=== PATIENT | male | born 1940 | race Caucasian/White ===

== ENCOUNTER 2021-03-29 16:13 | Inpatient (IN) | payer MEDICARE, BC ==
[~2021-03-29] VITALS: Ht 167.6 cm; Wt 65.8 kg
--- NOTE | 2021-03-29 16:28 | NUR ---
DILLON RA88 from home with c/o chest pain. Per EMS pt's cp was 9/10 on scene, now 6/10 after NTG SL spray x 1 in route to ER, pt was also given ASA po in route to ER. EKG done on arrival and handed to . Pt placed on cont cardiac rehabilitation program director, pulse ox and B/P. No acute distress noted as pt is smiling and joking with ER staff. Pt states " I just want to get out of here ". Plan of care/ ER course discussed with pt, pt verbalized understanding.
[2021-03-29] MEDS ORDERED: ACETAMINOPHEN ES 500 MG TABLET PO ONE (16:45)
[2021-03-29] MEDS ORDERED: NITROGLYCERIN 0.4 MG/TAB BOTTLE SL ONE ×2 (16:45→16:59)
[2021-03-29] MEDS ORDERED: ONDANSETRON ODT 4 MG TAB.RAPDIS SL ONE (16:45)
[2021-03-29] MEDS ORDERED: RAMI5CAP30 PO (16:47)
[2021-03-29] MEDS ORDERED: ASPI81TA31 PO (16:47)
[2021-03-29] MEDS ORDERED: ACETAMINOPHEN ES 500 MG TABLET ONE (16:59)
[2021-03-29] MEDS ORDERED: ONDANSETRON ODT 4 MG TAB.RAPDIS ONE (16:59)
[2021-03-29 17:13] LABS: MEAN CORPUSCULAR HEMOGLOBIN 31.4 uug (23.8-33.4); MEAN CORPUSCULAR VOLUME 96.1 fL (73.0-96.2); PLATELET COUNT (AUTO) 203 K/uL (152-348)
[2021-03-29 17:18] LABS: CREATININE 0.8 mg/dL (0.6-1.3)
[2021-03-29 17:33] LABS: BILIRUBIN,DIRECT 0.1 mg/dL (0.0-0.2); BILIRUBIN,TOTAL 0.4 mg/dL (0.2-1.0); TOTAL PROTEIN, SERUM 6.6 g/dL (6.4-8.2)
--- NOTE | 2021-03-29 18:00 | NUR ---
Pt resting in [facility] with NAD noted. Per pt to be admitted to tele, [employer] paged.
--- NOTE | 2021-03-29 18:30 | NUR ---
spoke with Khang Moon DNP via telephone and pt has been accepted for tele admission. spoke with the pt and pt's son (via telephone) about plan of care. Pt resting with NAD noted.
--- NOTE | 2021-03-29 19:10 | NUR ---
Hand off report given to HEAVENLY Escobedo.
--- NOTE | 2021-03-29 21:48 | NUR ---
Pt. admitted to tele , under care of Jerman Moon DNP Belongs List completed. Report given to HEAVENLY Chapin
--- NOTE | 2021-03-29 22:10 | NUR ---
Admitted patient to Tele unit from Er via [place] accompanied by Er nurse.Patient awake alert x 4 .Denies chest pain at this time. On Ra.No s/s of distress noted. Iv on rt hand 20 patent and intact .Started IVF tolerated well .Due meds given as ordered. No a/r noted.Patient NSR on tele.Safety measures in place. Call with in reach.Will continue to monitor.
[2021-03-29] MEDS ORDERED: IV NS 1000 ML 1,000 ML IV PRN (22:15)
[2021-03-29] MEDS ORDERED: MAGNESIUM HYDROXIDE 30 ML LIQUID UDC PO PRN (22:15)
[2021-03-29] MEDS ORDERED: Z GUARD REMEDY PASTE 57 GM TUBE TOP PRN (22:15)
[2021-03-29] MEDS ORDERED: MORPHINE SULFATE 2 MG/1 ML DISP.SYRIN IV PRN (22:15)
[2021-03-29] MEDS ORDERED: ONDANSETRON 4 MG/2 ML VIAL IV PRN (22:15)
[2021-03-29] MEDS ORDERED: ACETAMINOPHEN 325 MG TABLET PO PRN (22:15)
[2021-03-29] MEDS ORDERED: ENOXAPARIN SODIUM 40 MG/0.4 ML DISP.SYRIN SQ SCH (22:15)
[2021-03-29] MEDS ORDERED: ATORVASTATIN 40 MG TABLET PO SCH (22:15)
[2021-03-29 22:40] VITALS: BP 169/75
--- NOTE | 2021-03-29 22:59 | NUR ---
Received Troponin result of 2.676.Patient denies chest pain at this.Notified Khang Murphy with new order received noted and carried noted. Started another Iv line on left FA 22 g with good blood return.Heparin drip started at 1000u/hr.Patient tolerated well. PEr Colin Moon he contacted bar tender /Frank for consult.Will continue to monitor .Call light with in reach.
[2021-03-29] MEDS ORDERED: HEPARIN/D5W DRIP 500 ML IV PRN (23:45)
[2021-03-30] MEDS: NITROGLYCERIN OINT 1 GM PACKET TP SCH ×2 (00:24→05:51)
[2021-03-30] MEDS ORDERED: HEPARIN/D5W DRIP 500 ML ONE (00:25)
[2021-03-30 00:30] VITALS: BP 157/65
[2021-03-30 04:46] VITALS: BP 137/69
[2021-03-30 06:11] LABS: HEMATOCRIT 36.6 % (36.7-47.1); PLATELET COUNT (AUTO) 181 K/uL (152-348)
[2021-03-30 06:29] LABS: THYROID STIMULATING HORMONE 2.125 mIU/mL (0.358-3.740)
[2021-03-30 06:31] LABS: BILIRUBIN,TOTAL 0.3 mg/dL (0.2-1.0); CREATININE 0.9 mg/dL (0.6-1.3); MAGNESIUM 2.1 mg/dL (1.8-2.4); PHOSPHOROUS 3.5 mg/dL (2.5-4.9); POTASSIUM 4.1 mmol/L (3.5-5.1); TOTAL PROTEIN, SERUM 5.7 g/dL (6.4-8.2)
--- NOTE | 2021-03-30 06:51 | NUR ---
Critical Troponin 10.263 .Notified .Patient NPO after breakfast for cath.
[2021-03-30] MEDS ORDERED: PANTOPRAZOLE SODIUM 40 MG TABLET.DR PO SCH (07:00)
--- NOTE | 2021-03-30 07:40 | NUR ---
made aware of patient's Troponin 10.263 with order received to change patient to [facility].Keep patient NPO.PTT order placed at 12 noon.Will endorse to oncoming shift.
[2021-03-30 08:01] VITALS: BP 141/69
[2021-03-30] MEDS ORDERED: RAMIPRIL 5 MG CAPSULE PO SCH (09:00)
[2021-03-30] MEDS ORDERED: ASPIRIN 81 MG TAB.CHEW PO SCH (09:00)
--- NOTE | 2021-03-30 10:11 | NUR ---
seen by dr youssef, discussed plan of care with patient see notes
--- NOTE | 2021-03-30 11:00 | NUR ---
DR PRANAV CHESTER IN AND SPOKE WITH PATIENT REGARDING PLAN OF CARE. ORDER FOR DISCHARGE TO [facility] FOR HEART CATH
[2021-03-30 11:05] VITALS: BP 141/67
[2021-03-30] MEDS ORDERED: NITR1OIN2 TP (11:29)
[2021-03-30] MEDS ORDERED: PANT40TA2 PO (11:29)
--- NOTE | 2021-03-30 11:30 | NUR ---
DISCAHRGED TO [facility]IA [facility] WITH HEART CATH TEAM FROM [facility] BOARD
== END 2021-03-30 11:30 | disposition short-term general hospital (02) | DRG 282 ==
LOC: ER 16:15 → TELE3 21:35 → TELE-TD3 03-30 07:29
PROVIDERS: ADMIT Nurse Practitioner Acute Care; ATTEND Nurse Practitioner Acute Care
DX: I21.4 Non-ST elevation (NSTEMI) myocardial infarction (principal); I25.2 Old myocardial infarction; I25.10 Atherosclerotic heart disease of native coronary artery without angina pectoris; Z95.1 Presence of aortocoronary bypass graft; I10 Essential (primary) hypertension; Z20.822 Contact with and (suspected) exposure to COVID-19
CPT/HCPCS: 36415; 70030-TC; 71045; 83735; 84100; 84443; 85025; 85730; 93005; A4663; A9150; G0378; J1644; J1650; Q0162